=== PATIENT | female | born 1990 | race African-American/Black ===

== ENCOUNTER 2016-11-19 01:27 | Emergency (ER) | payer OTHER ==
[~2016-11-19] VITALS: Ht 188 cm; Wt 90.9 kg
[2016-11-19 01:30] VITALS: TEMP 97.9
[2016-11-19] MEDS ORDERED: GLUCOPHAGE1000 MG PO (01:34)
[2016-11-19] MEDS ORDERED: DOXYCYCLINE 10100 MG PO (03:06)
[2016-11-19] MEDS ORDERED: NORCO 325 MG-51 TAB PO (03:06)
[2016-11-19 03:27] VITALS: BP 124/84; PULSE 87
== END 2016-11-19 03:27 | disposition home or self-care (01) ==
LOC: COL.ER 01:27
DX: L02.416 Cutaneous abscess of left lower limb (principal)

== ENCOUNTER 2017-07-08 12:24 | Emergency (ER) | payer OTHER ==
[~2017-07-08] VITALS: Ht 188 cm; Wt 109.1 kg
[~2017-07-08 12:24] MED LIST: DOXYCYCLINE 10100 MG PO; GLUCOPHAGE1000 MG PO; NORCO 325 MG-51 TAB PO
[2017-07-08 12:26] VITALS: TEMP 98.5
[2017-07-08] MEDS ORDERED: FLAGYL500 MG PO (14:26)
[2017-07-08 14:42] LABS: BASO % 0.7 % (0.0-2.0); EOS # 0.1 (0.0-0.7); EOS % 1.2 % (0-4.0); GRAN % 45.7 % (42.2-75.2); HEMATOCRIT 37.2 % (37.0-47.0); LYMPH # 1.8 (1.2-3.4); LYMPH % 41.2 % (20.0-51.0); MEAN CELL VOLUME 90 fl (80.0-100.0); MEAN CORPUSCULAR HEMOGLOBIN 29 pg (27.0-31.0); MEAN CORPUSCULAR HGB CONC 32 g/dl (33.0-37.0); MEAN PLATELET VOLUME 8.9 fl (7.4-10.4); MONO # 0.5 (0.1-0.6); PLATELET COUNT 239 K/mm3 (130-400); RED BLOOD COUNT 4.14 M/mm3 (4.10-5.30); REDCELL DISTRIBUTION WIDTH-CV 12.9 % (11.5-14.5)
[2017-07-08] MEDS ORDERED: CLEOCIN HC150 MG/CAP PO (14:42)
[2017-07-08 14:51] LABS: CALCIUM 9.1 mg/dL (8.4-10.2); CREATININE, serum 0.81 mg/dL (0.52-1.25); POTASSIUM 3.9 mmol/L (3.4-5.0)
[2017-07-08] MEDS ORDERED: CLEOCIN HCL300 MG PO (16:06)
[2017-07-08 16:51] VITALS: BP 132/80; PULSE 78
== END 2017-07-08 16:54 | disposition home or self-care (01) ==
LOC: COL.ER 12:24
PROVIDERS: Physician Assistant
DX: R22.0 Localized swelling, mass and lump, head (principal); Z87.42 Personal history of other diseases of the female genital tract
CPT/HCPCS: J1885; J7030; Q9967

== ENCOUNTER 2017-07-09 01:55 | Emergency (ER) | payer OTHER ==
[~2017-07-09] VITALS: Ht 188 cm; Wt 109.1 kg
[~2017-07-09 01:55] MED LIST changes: +CLEOCIN HC150 MG/CAP PO; +CLEOCIN HCL300 MG PO; +FLAGYL500 MG PO
[2017-07-09 01:57] VITALS: TEMP 97.9
[2017-07-09 02:51] LABS: BASO % 0.2 % (0.0-2.0); EOS # 0.1 (0.0-0.7); EOS % 1.3 % (0-4.0); GRAN # 1.6 (1.4-6.5); GRAN % 36.3 % (42.2-75.2); HEMATOCRIT 37.8 % (37.0-47.0); HEMOGLOBIN 12.1 g/dl (12.5-16.0); LYMPH # 2.3 (1.2-3.4); LYMPH % 52.1 % (20.0-51.0); MEAN CELL VOLUME 91 fl (80.0-100.0); MEAN CORPUSCULAR HEMOGLOBIN 29 pg (27.0-31.0); MEAN CORPUSCULAR HGB CONC 32 g/dl (33.0-37.0); MEAN PLATELET VOLUME 9.4 fl (7.4-10.4); MONO # 0.4 (0.1-0.6); MONO % 9.9 % (1.7-9.3); PLATELET COUNT 254 K/mm3 (130-400); RED BLOOD COUNT 4.17 M/mm3 (4.10-5.30); REDCELL DISTRIBUTION WIDTH-CV 13.1 % (11.5-14.5)
[2017-07-09 03:03] LABS: ALBUMIN 4.3 gm/dL (3.5-5.0); BILIRUBIN,TOTAL 0.3 mg/dL (0.0-1.0); CREATININE, serum 0.78 mg/dL (0.52-1.25); TOTAL PROTEIN 8.3 gm/dL (6.4-8.2)
[2017-07-09 04:21] VITALS: BP 121/86; PULSE 80
== END 2017-07-09 04:29 | disposition home or self-care (01) ==
LOC: COL.ER 01:55
PROVIDERS: Emergency Medicine
DX: K12.2 Cellulitis and abscess of mouth (principal)
CPT/HCPCS: J1885; J2270; J2405